=== PATIENT | male | born 1970 | race Caucasian/White ===

== ENCOUNTER → 2021-05-10 16:12 | Outpatient (BNVA) | payer OTHER, SELFPAY | PROVIDERS: Visit Provider Family Medicine | DX: I10 Essential (primary) hypertension (principal); Z13.220 Encounter for screening for lipoid disorders; Z13.6 Encounter for screening for cardiovascular disorders | CPT/HCPCS: 80053; 80061; 85025 ==

== ENCOUNTER 2021-07-24 20:03 | Emergency (ER) | payer OTHER, SELFPAY ==
[2021-07-24 20:11] VITALS: BP 162/105; PULSE 63; RESP 18; TEMP 36.2; O2SAT 97; BMI 32.8
--- NOTE | 2021-07-24 20:32 | USR_ITS ---
PROCEDURE INFORMATION: Exam: US Abdomen, Limited; Right Upper Quadrant Exam date and time: 07/24/2021 8:32 PM Age: 51 years old Clinical indication: Abdominal pain; Additional info: Epigastric ruq pain TECHNIQUE: Imaging protocol: US abdomen. Real time ultrasound with image documentation. Limited exam focused on the right upper quadrant. COMPARISON: No relevant prior studies available. FINDINGS: Liver: Enlarged liver with the right hepatic lobe measuring 21 cm in length. Borderline diffusely increased echogenicity of the hepatic parenchyma. No masses. Gallbladder: Contracted gallbladder. No shadowing gallstones. There is no gallbladder wall thickening. Common bile duct: The common bile duct measures 5 mm within normal limits. Pancreas: Pancreas is poorly visualized secondary to overlying bowel gas and soft tissues. Right kidney: The right kidney measures 13 cm in length. The renal cortex echogenicity is within normal limits. Echogenic foci in the upper pole without twinkle artifact on color Doppler imaging, favored focal echogenic renal sinus fat. No hydronephrosis. US/US gall bladder [id number] IMPRESSION: 1. No acute findings. 2. Hepatomegaly with suspected mild diffuse hepatic steatosis. 3. Additional incidental findings described in the body of the report.
--- NOTE | 2021-07-24 20:32 | ECG_ITS ---
[facility] Test Date: 2021-07-24 Pat Name: Rony Blanton Department: Room: Gender: Male Rouge Mixer: : 1970 Requested By: Abrahan Ferguson Order Number: [id number] Marley MD: Sally Fregoso M.D. Measurements Intervals [place] Rate: 65 P: 46 MN: 208 QRS: 23 QRSD: 112 T: 52 QT: 377 QTc: 393 Interpretive Statements SINUS RHYTHM SEPTAL MYOCARDIAL INFARCTION , OF INDETERMINATE AGE [40+ ms Q WAVE IN V1/V2] Compared to ECG 08/03/2016 08:12:27 Myocardial infarct finding now present Sinus arrhythmia no longer present First degree AV block no longer present Electronically Signed On 07-25-2021 20:44:34 SECURITY MESSENGER by Sally Fregoso M.D. [id number]
--- NOTE | 2021-07-24 20:32 | XRR_ITS ---
PROCEDURE INFORMATION: Exam: XR Chest Exam date and time: 07/24/2021 8:32 PM Age: 51 years old Clinical indication: Pain; Chest pressure; Additional info: Cp TECHNIQUE: Imaging protocol: XR of the chest. Views: 1 view. COMPARISON: CR Chest 1 [place] [id number] 08/03/2016 8:10 AM FINDINGS: Lungs: Unremarkable. No consolidation. Pleural spaces: Unremarkable. No pleural effusion. No pneumothorax. Heart/Mediastinum: Unremarkable. No cardiomegaly. Bones/joints: Unremarkable. XR/XR chest 1V portable [id number] IMPRESSION: No acute findings.
[2021-07-24 20:53] LABS: Basophils # 0.1 10^3/uL (0.0-0.1); Eosinophils # 0.6 10^3/uL (0.0-0.8); Eosinophils % 5.7 %; Hematocrit 41.4 % (42.0-52.0); Hemoglobin 13.6 g/dL (11.7-16.6); Lymphocytes # 1.7 10^3/uL (0.8-4.8); Lymphocytes % 15.4 %; Mean Corpuscular HGB Conc 32.9 g/dL (30.0-36.0); Mean Corpuscular Hemoglobin 27.4 pg (28.0-34.0); Mean Corpuscular Volume 83.3 fl (80-94); Mean Platelet Volume 10.9 fL (7.4-10.4); Monocytes % 8.7 %; Neutrophils # 7.61 10^3/uL (1.8-7.7); Neutrophils % 68.8 %; Nucleated Red Blood Cells % 0 %; Platelet Count 239 10^3/cmm (130-400); Red Blood Count 4.97 10^6/uL (4.1-5.3); Red Cell Distribution Width 13.2 % (12.1-15.1); White Blood Count 11.1 10^3/uL (4.0-10.0)
[2021-07-24 21:02] VITALS: BP 144/97; PULSE 62; RESP 14; O2SAT 96
[2021-07-24] MEDS: ondansetron 2 mg/ML SDV 2 mL 4 MG IVP (21:04)
[2021-07-24] MEDS: sodium chloride 0.9% 500 ML 999 ML IV (21:06)
[2021-07-24 21:12] LABS: Troponin(5th) Baseline 6 ng/L (0-15)
[2021-07-24 21:20] LABS: Alanine Aminotransferase 21 U/L (0-41); Albumin Level 4.4 g/dL (3.5-5.2); Alkaline Phosphatase 84 IU/L (40-130); Blood Urea Nitrogen 20 mg/dL (6-20); Carbon Dioxide 21 mmol/L (22-29); Chloride 100 mmol/L (98-107); Creatine Phosphokinase 147 U/L (39-308); Globulin 2.2 g/dL (1.3-4.6); Glomerular Filtration Rate 71.1 mL/min (90-130); Glucose 138 mg/dL (65-115); Lipase 57 U/L (13-60); NT Pro B Type Natriuretic Pept 23 pg/mL (0-125); Osmolality Calculated 287 mOsm/kg (285-295); Sodium 136 mmol/L (136-145); Total Bilirubin 0.2 mg/dL (0.15-1.2); Total Protein 6.6 g/dL (6.6-8.7)
[2021-07-24 21:21] LABS: Anion Gap 19.3 (5-19); Aspartate Amino Transferase 17 U/L (0-40); Potassium 4.3 mmol/L (3.5-5.1)
[2021-07-24 22:30] VITALS: BP 166/109
--- NOTE | 2021-07-24 22:32 | ECG_ITS ---
[facility] Test Date: 2021-07-24 Pat Name: Rony Blanton Department: Room: Gender: Male Machine Loader: : 1970 Requested By: Abrahan Ferguson Order Number: [id number] Marley MD: Sally Fregoso M.D. Measurements Intervals [place] Rate: 68 P: 166 PA: 195 QRS: 211 QRSD: 113 T: 152 QT: 367 QTc: 392 Interpretive Statements ECTOPIC ATRIAL RHYTHM POSSIBLE RIGHT VENTRICULAR HYPERTROPHY [SOME/ALL OF: PROMINENT R IN V1, LATE TRANSITION, RAD, JAMEL, SSS] SEPTAL MYOCARDIAL INFARCTION , OF INDETERMINATE AGE [40+ ms Q WAVE IN V1/V2] Compared to ECG 08/03/2016 08:12:27 Ectopic atrial rhythm now present Myocardial infarct finding now present Sinus rhythm no longer present Sinus arrhythmia no longer present First degree AV block no longer present Electronically Signed On 07-25-2021 20:50:07 PRODUCTION MATERIAL HANDLER by Sally Fregoso M.D. [id number]
[2021-07-24 22:56] LABS: Add Urine Culture? No; Add Urine Microscopic? YES; Bacteria Urine TRACE /hpf; Bilirubin Urine Neg (Negative); Blood Urine 2+ (Negative); Glucose Urine UA Norm (Normal); Ketones Urine Negative (Negative); Leukocyte Esterase Urine Negative (Negative); Nitrate Urine Negative (Negative); Protein Urine Neg (Negative); RBC Urine 0-4 /hpf (0-2); Squamous Epithelial Cell Urine 0-4 /hpf (0-5); Urine Appearance Clear (CLEAR); Urine Color Yellow (Yellow); Urobilinogen Urine Norm (Negative); WBC Urine 0-4 /hpf (0-5); pH Urine 5 (5-7)
[2021-07-24 23:00] VITALS: BP 157/96; PULSE 70; O2SAT 96
[2021-07-24 23:08] LABS: Troponin 5 2HR 7.03 ng/L (0-15); Troponin 5 2HR Delta 1.03 ABS# (0-10)
--- NOTE | 2021-07-24 23:13 | ED_ITS ---
HPI - Chest Pain General: Chief Complaint: Chest Pain Stated Complaint: Chest Pains Time Seen by Provider: 07/24/21 20:16 History of Present Illness: HPI narrative: 51-year-old male who complains of some mild epigastric discomfort with shortness of breath. He states his hard to take a deep breath then. He feels like his belly is very full. No overt chest pain. No fever. No vomiting. He was slightly nauseated at home, and became diaphoretic once. No history of heart disease. He does have a history of high blood pressure, which is untreated. MD complaint: chest pain Pertinent past history: other Onset (ago): hour(s) Timing of current episode: constant Prior episodes: No Onset: after eating Associated symptoms: Reports abdominal pain (distension), dyspnea and nausea; Deny fever(s), palpitations or vomiting Review of Systems Const: Denies: fever(s) or chills Card: Denies: palpitations, irregular heart rhythm or edema Resp: Reports: dyspnea; Denies: productive cough or non-productive cough GI: Reports: abdominal pain (distension) and nausea; Denies: vomiting or diarrhea PFS ED PFSH: Social History (Updated 05/10/21 @ 15:05 by Telly Roger LPN) Smoking and tobacco status: never smoked Alcohol intake: current Alcohol intake frequency: few times a week Physical Exam Const: COMMON NORMALS: no acute distress, patient oriented x3 and alert GENERAL APPEARANCE: cooperative HENMT: COMMON NORMALS: normocephalic HEAD & SCALP: normocephalic Chest: COMMONS NORMALS: normal inspection of the chest Resp: COMMON NORMALS: normal respiratory effort, No use of accessory muscles and clear to auscultation bilaterally AUSCULTATION: clear to auscultation bilaterally Cardio: COMMON NORMALS: regular rate and regular rhythm RATE: regular rate RHYTHM: regular rhythm GI: COMMON NORMALS: Soft to palpation INSPECTION: Yes abdominal distension PALPATION: Yes Soft to palpation and No Tenderness to palpation present (GI) Neuro: COMMON NORMALS: patient oriented x3 SENSORIUM/ORIENTATION: Yes alert Course Vital Signs: Vital signs: Vital Signs Temperature 97.1 F L 07/24/21 20:11 Pulse Rate 66 07/24/21 23:30 Respiratory Rate 18 07/24/21 23:30 Blood Pressure 163/96 07/24/21 23:51 Pulse Oximetry 94 07/24/21 23:51 MDM - Chest Pain MDM Narrative: Medical decision making narrative: 51-year-old male with epigastric discomfort, full feeling, and inability to take a deep breath. Oxygen saturations are 95% on room air. Blood pressure 163/96, heart rate sinus at 66. His EKG shows a sinus rhythm. No acute ST changes. Normal axis and intervals he does have Q waves in V1 V2. White blood cell count is 11. Bicarbonate 21. Liver enzymes normal. Lipase normal. Gallbladder ultrasound is negative. He was given a GI cocktail with some improvement. He will be allowed discharge. Lab Data: Labs: Lab Results 07/24/21 07/24/21 07/24/21 20:36 20:36 20:36 WBC 11.1 10^3/uL H 10 ^3/uL (4.0-10.0) RBC 4.97 10^6/uL 10^6 /uL (4.1-5.3) Hgb 13.6 g/dL g/dL (11.7-16.6) Hct 41.4 % L % (42.0-52.0) MCV 83.3 fl fl (80-94) MCH 27.4 pg L pg (28.0-34.0) MCHC 32.9 g/dL g/dL (30.0-36.0) RDW 13.2 % % (12.1-15.1) Plt Count 239 10^3/cmm 10^3 /cmm (130-400) MPV 10.9 fL H fL (7.4-10.4) Neut % (Auto) 68.8 % % Lymph % (Auto) 15.4 % % Gentry % (Auto) 8.7 % % Eos % (Auto) 5.7 % % Baso % (Auto) 1.0 % % Neut # (Auto) 7.61 10^3/uL 10^3 /uL (1.8-7.7) Lymph # (Auto) 1.7 10^3/uL 10^3/ uL (0.8-4.8) Gentry # (Auto) 1.0 10^3/uL H 10^ 3/uL (0.2-0.9) Eos # (Auto) 0.6 10^3/uL 10^3/ uL (0.0-0.8) Baso # (Auto) 0.1 10^3/uL 10^3/ uL (0.0-0.1) Nucleated RBC % (a uto) 0 % % Nucleated RBCs # 0.0 /100WBC /100W BC Sodium 136 mmol/L mmol/L (136-145) Potassium 4.3 mmol/L mmol/L (3.5-5.1) Chloride 100 mmol/L mmol/L (98-107) Carbon Dioxide 21 mmol/L L mmol/ L (22-29) Anion Gap 19.3 H (5-19) BUN 20 mg/dL mg/dL (6-20) Creatinine 1.1 mg/dL mg/dL (0.7-1.2) GFR Calculation 71.1 mL/min L mL/ min (90-130) Glucose 138 mg/dL H mg/dL (65-115) Calculated Osmolal ity 287 mOsm/kg mOsm/ kg (285-295) Calcium 9.0 mg/dL mg/dL (8.5-10.5) Total Bilirubin 0.2 mg/dL mg/dL (0.15-1.2) AST 17 U/L U/L (0-40) ALT 21 U/L U/L (0-41) Alkaline Phosphata se 84 IU/L IU/L (40-130) Creatine Kinase 147 U/L U/L (39-308) Troponin T Baselin e 6 ng/L ng/L (0-15) Troponin T 120 Min [place] Delta Troponin T NT-Pro-B Natriuret Pep 23 pg/mL pg/mL (0-125) Total Protein 6.6 g/dL g/dL (6.6-8.7) Albumin 4.4 g/dL g/dL (3.5-5.2) Globulin 2.2 g/dL g/dL (1.3-4.6) Lipase 57 U/L U/L (13-60) Urine Color Urine Appearance Urine pH Ur Specific Gravit y Urine Protein Urine Glucose (UA) Urine Ketones Urine Blood Urine Nitrate Urine Bilirubin Urine Urobilinogen Ur Leukocyte Jada ase Urine RBC Urine WBC Ur Squamous Epith Cells Amorphous Sediment Urine Bacteria 07/24/21 07/24/21 22:32 22:42 WBC RBC Hgb Hct MCV MCH MCHC RDW Plt Count MPV Neut % (Auto) Lymph % (Auto) Gentry % (Auto) Eos % (Auto) Baso % (Auto) Neut # (Auto) Lymph # (Auto) [place]entry # (Auto) Eos # (Auto) Baso # (Auto) Nucleated RBC % (a uto) Nucleated RBCs # Sodium Potassium Chloride Carbon Dioxide Anion Gap BUN Creatinine GFR Calculation Glucose Calculated Osmolal ity Calcium Total Bilirubin AST ALT Alkaline Phosphata se Creatine Kinase Troponin T Baselin e Troponin T 120 Min [place] 7.03 ng/L ng/L (0-15) Delta Troponin T 1.03 ABS# ABS# (0-10) NT-Pro-B Natriuret Pep Total Protein Albumin Globulin Lipase Urine Color Yellow (Yellow) Urine Appearance Clear (CLEAR) Urine pH 5 (5-7) Ur Specific Gravit y 1.020 (1.005-1.030) Urine Protein Neg (Negative) Urine Glucose (UA) Norm (Normal) Urine Ketones Negative (Negative) Urine Blood 2+ H (Negative) Urine Nitrate Negative (Negative) Urine Bilirubin Neg (Negative) Urine Urobilinogen Norm mg/dL mg/dL (Negative) Ur Leukocyte Jada ase Negative (Negative) Urine RBC 0-4 /hpf H /hpf (0-2) Urine WBC 0-4 /hpf H /hpf (0-5) Ur Squamous Epith Cells 0-4 /hpf H /hpf (0-5) Amorphous Sediment Not Reportable Urine Bacteria Trace /hpf /hpf (NONE) Discharge Plan Discharge Patient Disposition: Home Clinical Impression: Atypical chest pain Condition: Stable Prescriptions: New Prevacid 30 mg capsule,delayed release(DR/EC) 30 mg PO DAILY Qty: 30 RF: 0 ondansetron 4 mg film 4 mg PO DAILY PRN (Reason: nausea and vomiting) Qty: 10 RF: 0 Discharge Orders: Discharge ED (Routine); Ordered 07/24/21 Ordered By: Abrahan Wood Discharge Diet: Advance as tolerated Discharge Activity: Increase activity as tolerated Activity Restrictions/Additional Instructions: Return for worsening shortness of breath, chest discomfort, fever greater than 100, vomiting liquids or medications, any other concerning symptoms. Medication as directed. A case management referral has been made for primary care follow- up. Coding Level of Care Code ED Topology Professor for Wilig Fwd Exam Detailed
[2021-07-24 23:30] VITALS: BP 163/96; PULSE 66; RESP 18; O2SAT 94
[2021-07-24 23:51] VITALS: BP 163/96; O2SAT 94
--- NOTE | 2021-08-02 14:37 | PC.SOCIAL ---
Addendum entered by Margie Rivera RN 08/03/21 12:14: called back and indicates that patient has a primary care physician set up. No further needs. Addendum entered by Margie Rivera RN 08/03/21 08:24: No return call attempted to call this am no answer he returned call directly and indicates he already has an appt with a pcp and ended call quickly. No additional follow up needed. Original Note: unable to reach patient at number provided left message. Referral received from ED to set up for PCP appointment. Will try again at later time unless pt returns call.
== END 2021-07-24 23:53 | disposition home or self-care (01) ==
PROVIDERS: Emergency Provider Emergency Medicine
DX: R07.89 Other chest pain (principal)
CPT/HCPCS: 71045; 76705; 80053; 81001; 82550; 83690; 83880; 84484; 85025; 93005; 96361; 96374; 99284; J2405; J7040

== ENCOUNTER 2021-12-05 07:33 | Day surgery (SDC) | payer OTHER, SELFPAY ==
[2021-12-02 12:16] VITALS: BMI 31.6
--- NOTE | 2021-12-05 08:02 | P.HP_ITS ---
Same Day Surgery H&P Indication for Procedure/HPI DATE OF PROCEDURE: December 05, 2021 CHIEF COMPLAINT/INDICATIONFOR SURGICAL PROCEDURE: Screening PREOP DIAGNOSIS: Screen PLANNED PROCEDURE: Operation Date: 12/05/21 09:00 Proposed Procedures p Colonoscopy g0121/z12.11(Not Applicable) - Hari Mullins MD Medications/Allergies* Allergies/Adverse Reactions Allergy/AdvReac Type Severity Reaction Status Date / Time No Known Allergies Allergy Verified 12/02/21 12:16 Pertinent History/Comorbid Conditions* Social History Smoking and tobacco status: never smoked Alcohol intake: current Alcohol intake frequency: few times a week Pertinent Exam Findings alert, oriented x 3, clear to auscultation bilaterally, regular rate & rhythm, operative site marked and procedure specific exam findings Recommendations Surgery/Procedure today Coding Level of Care Code 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
[2021-12-05] MEDS: sodium chloride 0.9% 1,000 ML 30 ML IV (08:07)
--- NOTE | 2021-12-05 08:11 | ANES.PREANE2 ---
Pre-Anesthetic Assessment Height/Weight: Height 1.93 m Weight 117.934 kg Preop Diagnosis: Screen Operation Date: 12/05/21 09:00 Proposed Procedures p Colonoscopy g0121/z12.11(Not Applicable) - Hari Mullins MD Familial anesthetic complications: NOne Was Beta Kathrine taken within 24 hours: N/A Was Clonidine taken within 24 hours: N/A Last intake: Intake Last Liquid Date 12/04/21 Last Liquid Time 23:30 Last Solid Date 12/03/21 Last Solid Time 19:00 Social Alcohol (ocassional) Marijuana use Exam alert, oriented x 3, clear to auscultation bilaterally and regular rate & rhythm Airway Mallampati: Class III Dentition: full Comments: Comments: large tongue Pulmonary None reported CV/HEM Hypertension > 4 METS None reported Hepatic None reported GI Gastroesophageal Reflux Disease Metabolic None reported Musc/skel None reported Neuropsych None reported Anesthetic Plan ASA status: 2 Anesthesia: MAC Risk of > 500 ml blood loss (7ml/kg in children): No Medications/Allergies Home Medications Medication Instructions Recorded Confirmed Last Taken Type lisinopril 20 mg tablet 20 mg PO DAILY 90 Days #90 tab 11/16/21 12/05/21 12/03/21 Rx Allergies Allergy/AdvReac Type Severity Reaction Status Date / Time No Known Allergies Allergy Verified 12/02/21 12:16 Current Medications Generic Name Dose Route Start Last Admin Trade Name Freq PRN Reason Stop Dose Admin Sodium Chloride 1,000 mls @ 30 mls/hr 12/05/21 07:45 12/05/21 08:07 Sodium Chloride 0.9% IV 30 mls/hr .Q24H RICO Administration PFSH Anesthesia Social History Smoking and tobacco status: never smoked Alcohol intake: current Alcohol intake frequency: few times a week Data Anesthesia Cardiac Studies: No Data to Display
[2021-12-05 08:53] VITALS: BP 134/95; PULSE 67; RESP 16; TEMP 36.1; O2SAT 95
[2021-12-05 09:03] VITALS: BP 136/93; PULSE 66; RESP 16; O2SAT 97
[2021-12-05 09:11] VITALS: BP 121/84; PULSE 56; RESP 16; O2SAT 98
--- NOTE | 2021-12-05 14:47 | ANE.PACU2 ---
Inpatient post-anesthesia follow up: Airway intact: Yes Vital signs: Temperature 97 F Pulse Rate 56 Respiratory Rate 16 Blood Pressure 121/84 Pulse Oximetry 98 Oxygen Delivery Me thod Room Air Oxygen Flow Rate 4 Fraction of Inspir ed Oxygen Hydration adequate: Yes Nausea and vomiting: No Pain level: 2 Mental status: Baseline
== END 2021-12-05 09:20 | disposition home or self-care (01) ==
PROVIDERS: PCP Internal Medicine; Visit Provider Internal Medicine
PROC: 0DJD8ZZ Inspection of Lower Intestinal Tract, Via Natural or Artificial Opening Endoscopic (ICD-10-PCS; CPT 45378; principal; 2021-12-05 09:00)
DX: Z12.11 Encounter for screening for malignant neoplasm of colon (principal); K21.9 Gastro-esophageal reflux disease without esophagitis
CPT/HCPCS: 45378; J2704; J7030

== ENCOUNTER → 2022-02-21 08:30 | Outpatient (BNVA) | payer OTHER, SELFPAY | PROVIDERS: PCP Family Medicine; Visit Provider Family Medicine | DX: I10 Essential (primary) hypertension (principal); Z12.5 Encounter for screening for malignant neoplasm of prostate; R31.9 Hematuria, unspecified; R31.21 Asymptomatic microscopic hematuria | CPT/HCPCS: 80053; 81003; 84153 ==

== ENCOUNTER → 2022-03-15 08:09 | Outpatient (BNVA) | payer OTHER, SELFPAY | PROVIDERS: PCP Family Medicine; Visit Provider Nurse Practitioner Family | DX: R31.9 Hematuria, unspecified (principal); R31.21 Asymptomatic microscopic hematuria; Z80.42 Family history of malignant neoplasm of prostate | CPT/HCPCS: 81003 ==

== ENCOUNTER → 2024-04-29 10:00 | Outpatient (BNVA) | payer OTHER, SELFPAY | PROVIDERS: PCP Family Medicine; Visit Provider Family Medicine | DX: I10 Essential (primary) hypertension (principal); Z13.220 Encounter for screening for lipoid disorders; Z13.6 Encounter for screening for cardiovascular disorders; K21.9 Gastro-esophageal reflux disease without esophagitis; Z12.5 Encounter for screening for malignant neoplasm of prostate; R31.21 Asymptomatic microscopic hematuria; E55.9 Vitamin D deficiency, unspecified | CPT/HCPCS: 80053; 80061; 82306; 82728; 83540; 85027; G0103 ==

== ENCOUNTER → 2025-03-10 13:45 | Outpatient (BNVA) | payer OTHER, SELFPAY | PROVIDERS: PCP Family Medicine; Visit Provider Family Medicine | DX: Z13.220 Encounter for screening for lipoid disorders (principal); I10 Essential (primary) hypertension; Z13.6 Encounter for screening for cardiovascular disorders; Z12.5 Encounter for screening for malignant neoplasm of prostate; K21.9 Gastro-esophageal reflux disease without esophagitis; E55.9 Vitamin D deficiency, unspecified | CPT/HCPCS: 80053; 80061; 82306; 84443; 85027; G0103 ==

== ENCOUNTER → 2025-04-01 07:56 | Outpatient (BNVA) | payer OTHER, SELFPAY | PROVIDERS: PCP Family Medicine; Visit Provider Physician Assistant | DX: M67.442 Ganglion, left hand (principal) | CPT/HCPCS: 73130 ==

== ENCOUNTER 2025-04-30 09:54 | Day surgery (SDC) | payer OTHER, SELFPAY ==
[2025-04-30] VITALS (13 sets, daily range): BP systolic 146–189; BP diastolic 83–106; PULSE 55–74; RESP 18–20; TEMP 36.6; O2SAT 93–100; BMI 32.5
[2025-04-30] MEDS: acetaminophen 1,000 MG/100 ML PIGGYBACK 400 MG IV (11:03)
--- NOTE | 2025-04-30 12:05 | W.PM.OPSUD ---
Surgery/Procedure H&P Update DATE OF PROCEDURE: April 30, 2025 DATE H&P PERFORMED: 04/01/25 H&P UPDATE INFORMATION: I have reviewed H&P completed within last 30 days, I have examined patient prior to procedure and No changes to prior documentation PREOP DIAGNOSIS: Left middle finger dorsal cyst PRIMARY INDICATION FOR PROCEDURE: Left middle finger dorsal cyst PLANNED PROCEDURE: Operation Date: 04/30/25 12:25 Proposed Procedures p left middle finger cyst excision(Left) - Ab Verdugo DO
[2025-04-30] MEDS: ceFAZolin 3,000 MG in sodium chloride 0.9% (plus) 100 ML 200 MG IV (13:56)
--- NOTE | 2025-04-30 14:27 | P.BOP_ITS ---
Date of Procedure: [April 30, 2025] Surgeon: [Dr. Verdugo DO] Public Health Sanitarian(s): [NA] Procedure(s) performed: [Left middle finger dorsal cyst excision] Findings of the procedure(s): [Left middle finger cyst. Procedure went well and as planned] Estimated blood loss: [2 mL] Specimen(s) removed: [N/A] Post-operative diagnosis: [Left middle finger cyst]
[2025-04-30] MEDS: ROPivacaine 0.5% SDV 30 mL 25 MG INJECTION (14:33)
--- NOTE | 2025-04-30 17:50 | P.OP_ITS ---
Operative Report Date of procedure: April 30, 2025 Surgeon: Ab Verdugo DO Procedure: Preoperative diagnosis: Left middle finger dorsal cyst Post-op diagnosis: Left?middle?finger ?cyst Procedure done: Left middle finger dorsal cyst excision Surgeon: Ab Verdugo DO Estimated blood loss: 2 mL Tourniquet time 14 minutes IV fluids: 400 mL Complications: None Findings: See operative report narrative Condition: stable Disposition: same day Brief History: Patient presents to the outpatient setting with findings consistent with a Left middle finger ?cyst.? pt has been worked up in the outpatient setting and is failed conservative treatment approach.? Patient has Left middle finger cyst?that appears to be associated with PIP joint or extensor tendon sheath. Patient wishes to proceed with surgical intervention.? We talked about the risk benefits complications and alternatives with surgical nonsurgical treatment options.? Understanding risk of surgery pt agrees to proceed with a Left middle finger dorsal?cyst?excision.? All questions answered. Procedure: Patient was seen evaluated in the preoperative holding area.? Consent was reviewed and signed with patient.? Correct extremity was then marked.? Patient wished to proceed and do this with local only anesthesia. once cleared for surgery patient was then taken back to the operative suite patient was placed in supine position and all bony prominences well-padded the patient was properly secured to the bed.? Armboard was applied to the Left upper extremity. This point time the Left upper extremity was then prepped and draped in standard orthopedic fashion.? A final timeout was performed.? Patient received appropriate preoperative antibiotics. Prior to proceeding with incision sites I then performed digital block of the Left middle finger under sterile aseptic technique Finger turnicot was used over the Left middle finger to exsanguinate the digit. Once appropriately anesthetized I then subsequently identified the left middle finger dorsal cyst which was directly over the PIP joint a straight longitudinal incision was made utilizing sharp scalpel incision. I then switched to Littler dissection scissors and dissected both proximally and distally and identified the cyst to its entirety. The cyst was then dissected circumferentially and identified at the base which communicated to the extensor tendon sheath but did not communicate into the joint. I then utilized bipolar electrocautery to remove this from the deep surface and peeled this off of the extensor tendon sheath with care to protect the extensor tendon mechanism and then subsequently utilize electrocautery to coagulate at the stalk connecting to the sheath. This was then removed to its entirety and sent for specimen. Cyst measured roughly 1 cm x 1 cm by 0.5 centimeter. Once this was then subsequently removed, next I then removed finger turnicot wound bed was then thoroughly irrigated hemostasis was maintained with bipolar electrocautery.? Next I closed the incision with interrupted nylon suture.? Incision sites were then dressed with Xeroform 4 x 4's Kerlix Flo wrap and an Ilir wrap.? Patient was then awakened from anesthesi a and taken to PACU in stable condition. Disposition: Patient taken to PACU in stable condition recovering well.? Dressing on in place clean dry and intact.? Patient was receive appropriate discharge instruction as well as pain medication postoperatively.? Patient may be allowed weightbearing as tolerated to the Left hand and encourage range of motion once dressing come down after 72 hours.? Patient to follow-up with me in the office in 2 weeks.? Patient understands and agrees with current plan.? All questions answered.
== END 2025-04-30 14:55 | disposition home or self-care (01) ==
PROVIDERS: PCP Family Medicine; Visit Provider Student in an Organized Health Care Education/Training Program
PROC: (CPT 26160; principal; 2025-04-30 12:25)
DX: M67.442 Ganglion, left hand (principal)
CPT/HCPCS: 26160; 88304; J0131; J0690; J1885; J2795; J7030; J9999